=== PATIENT | female | born 1970 | race African-American/Black ===

== ENCOUNTER 2017-09-12 12:58 | Emergency (ER) | payer SELFPAY ==
--- NOTE | 2017-09-12 15:31 | RAD ---
3 VIEWS LUMBAR SPINE: Date: 09/12/17 HISTORY: Injury to low back. Patient complains of low back pain after slipping and falling 1 month ago. COMPARISON: 11/15/02. FINDINGS: Surgical clips overlie the right upper quadrant with radiopaque suture material overlying the left up per quadrant. There are five non-rib bearing lumbar-type vertebral bodies. Small osteophytes are seen anteriorly at the L1-2 and L2-3 levels. The vertebral body heights are within normal limits. There i s no fracture or subluxation involving the lumbar spine. There is angulation of the lowermost sacral segment, which may be related to prior injury or developmental in origin. This is not thought to repr esent an acute finding. Vascular calcifications are seen in the abdominal aorta and iliac arteries. IMPRESSION: 1. No acute fracture or subluxation involving the lumbar spine. 2. Mild degenerative changes lumbar spine. 3. Angulation lowermost sacral segment. This was not present on CT exam in 2013, but this does not a ppear to represent more acute injury and is probably more remote in origin. However, correlation for point tenderness in the lower sacrum is recommended. POS: [facility]
--- NOTE | 2017-09-12 15:37 | RAD ---
4 VIEWS LEFT ELBOW: Date: 09/12/17 HISTORY: Left elbow injury. Left elbow pain. FINDINGS: Mild degenerative changes are seen involving the elbow. There is a very tiny punctate osseous density above the coronoid process of the elbow, which could represent a tiny avulsion injury of indetermina te age. No additional fracture seen and there is no dislocation. There is evidence of a small joint e ffusion with suggestion of elevation of the posterior fat pad. IMPRESSION: 1. Elbow joint effusion which suggests the possibility of a fracture. Follow-up views of the elbow a re recommended after conservative management in 4-7 days. 2. Tiny osseous density adjacent to the coronoid process of the olecranon which may represent a very tiny avulsion injury of indeterminate age. POS: [facility]
--- NOTE | 2017-09-12 15:56 | RAD ---
RIGHT INDEX FINGER 3 VIEWS: Date: 09/11/17 HISTORY: Right femur injury. FINDINGS: Soft tissue swelling about the proximal interphalangeal joint. Joint spaces are preserved. No acute f racture, dislocation, or radiopaque foreign bodies. IMPRESSION: Soft tissue swelling. No acute osseous abnormalities are demonstrated. POS: [facility]
== END 2017-09-12 16:23 | disposition home or self-care (01) ==
LOC: SCSER 12:58
DX: S52.022A Displaced fracture of olecranon process without intraarticular extension of left ulna, initial encounter for closed fracture (principal); S33.5XXA Sprain of ligaments of lumbar spine, initial encounter; S63.610A Unspecified sprain of right index finger, initial encounter; J45.909 Unspecified asthma, uncomplicated; I10 Essential (primary) hypertension; F17.210 Nicotine dependence, cigarettes, uncomplicated; Z79.899 Other long term (current) drug therapy; W19.XXXA Unspecified fall, initial encounter
CPT/HCPCS: 24670; 72100

== ENCOUNTER 2018-03-14 18:19 | Emergency (ER) | payer SELFPAY | END 2018-03-14 18:46 | disposition left against medical advice (07) | LOC: ERS 18:19 | DX: Z53.21 Procedure and treatment not carried out due to patient leaving prior to being seen by health care provider (principal) ==

== ENCOUNTER 2019-02-06 02:20 | Emergency (ER) | payer SELFPAY | END 2019-02-06 10:00 | disposition home or self-care (01) | LOC: ERS 02:20 | DX: F10.129 Alcohol abuse with intoxication, unspecified (principal); I10 Essential (primary) hypertension; F17.210 Nicotine dependence, cigarettes, uncomplicated | CPT/HCPCS: 36415; 80307; 99283 ==

== ENCOUNTER 2019-02-06 12:05 | Emergency (ER) | payer SELFPAY | END 2019-02-06 14:41 | disposition left against medical advice (07) | LOC: ERS 12:05 | DX: Z53.21 Procedure and treatment not carried out due to patient leaving prior to being seen by health care provider (principal) ==

== ENCOUNTER 2019-05-28 06:03 | Emergency (ER) | payer SELFPAY ==
[2019-05-28 07:04] LABS: BHCG - Serum Negative (NEGATIVE); Pregs Control Background? CLEAR/WHITE (CLR/WHITE); Pregs Control Bar Appear? YES (CONTROL BAR)
[2019-05-28 07:15] LABS: ALT (SGPT) 90 U/L (8-55); AST (SGOT) 211 U/L (5-34); Albumin 3.9 g/dL (3.5-5.0); Alkaline Phosphatase 87 U/L (40-110); Anion Gap 13 mmol/L (10-20); BUN (Urea Nitrogen) 9 mg/dL (7.0-18.7); Bilirubin, Total 0.2 mg/dL (0.2-1.2); Calc. Creatinine Clearance 0 mL/min (70-130); Calcium 8.5 mg/dL (7.8-10.44); Carbon Dioxide 23 mmol/L (22-29); Chloride 101 mmol/L (98-107); Estimated GFR-MDRD Greater than 90; Globulin 3.2 g/dL (2.4-3.5); Glucose 74 mg/dL (70-105); Potassium 3.4 mmol/L (3.5-5.1); Protein, Total 7.1 g/dL (6.0-8.3); Sodium 134 mmol/L (136-145)
[2019-05-28 07:16] LABS: Acetaminophen Less than 6.0 mcg/mL (10.0-30.0); Alcohol 294 mg/dL (Less than 10); Salicylate Less than 8.0 mg/dL (15.0-30.0)
[2019-05-28 07:22] LABS: #Basophils 0.1 thou/uL (0.0-0.2); #Eosinphils 0.1 thou/uL (0.0-0.7); #Lymphocytes 2.3 thou/uL (1.20-3.40); #Monocytes 0.6 thou/uL (0.11-0.59); #Neutrophils 3.2 thou/uL (1.40-6.50); %Basophils 1.2 % (0.0-1.0); %Eosinophils 2.2 % (0.0-10.0); %Lymphocytes 36.1 % (21.0-51.0); %Monocytes 9.1 % (0.0-10.0); %Neutrophils 51.5 % (42.0-75.0); Mean Corpuscular HGB CONC 31.4 g/dL (32.0-36.0); Mean Corpuscular Hemoglobin 22.6 pg (27.0-31.0); Mean Corpuscular Volume 71.9 fL (78.0-98.0); Red Blood Cell (RBC) Count 4.43 mill/uL (4.20-5.40); White Blood Cell (WBC) Count 6.3 thou/uL (4.8-10.8)
[2019-05-28 07:24] LABS: Mean Platelet Volume 6.4 fL (7.4-10.4); RBC Distribution Width 19.7 % (11.5-14.5)
[2019-05-28 07:37] LABS: Platelet Count 116 thou/uL (130-400); Target Cells MODERATE= 6-15 cells (100X) (0-1/hpf)
[2019-05-28 07:38] LABS: Hypochromia SLIGHT = 6-15 cells (100X) (0-5/hpf); Microcytosis SLIGHT = 6-15 cells (100X) (0-5/hpf); Polychromasia SLIGHT = 2-3 cells (100X) (0-2/hpf)
== END 2019-05-28 08:26 | disposition home or self-care (01) ==
LOC: ERS 06:03
DX: F10.129 Alcohol abuse with intoxication, unspecified (principal); R11.2 Nausea with vomiting, unspecified; R19.7 Diarrhea, unspecified; F17.210 Nicotine dependence, cigarettes, uncomplicated; I10 Essential (primary) hypertension
CPT/HCPCS: 36415; 80053; 80307; 84703; 85025; 96360; 96361

== ENCOUNTER 2020-07-16 13:51 | Emergency (ER) | payer SELFPAY ==
[2020-07-16] MEDS ORDERED: Metoclopramide HCl 10 MG/2 ML VIAL ONE (14:32)
[2020-07-16] MEDS ORDERED: Ketorolac Tromethamine 30 MG/ML VIAL ONE (14:32)
[2020-07-16 15:11] LABS: #Eosinphils 0.1 thou/uL (0.0-0.7); #Lymphocytes 1.6 thou/uL (1.20-3.40); #Monocytes 0.4 thou/uL (0.11-0.59); #Neutrophils 2.9 thou/uL (1.40-6.50); %Eosinophils 1.1 % (0.0-10.0); %Lymphocytes 32.3 % (21.0-51.0); %Monocytes 7.2 % (0.0-10.0); %Neutrophils 58.4 % (42.0-75.0); Mean Corpuscular HGB CONC 32.8 g/dL (32.0-36.0); Mean Corpuscular Hemoglobin 23.8 pg (27.0-31.0); Mean Corpuscular Volume 72.7 fL (78.0-98.0); Mean Platelet Volume 7.4 fL (7.4-10.4); Platelet Count 97 thou/uL (130-400); RBC Distribution Width 19.7 % (11.5-14.5); Red Blood Cell (RBC) Count 4.61 mill/uL (4.20-5.40); White Blood Cell (WBC) Count 4.9 thou/uL (4.8-10.8)
[2020-07-16 15:20] LABS: Bilirubin Negative (Negative); Blood, Urine Small (Negative); Glucose, Urine (Dipstick) Negative (Negative); Ketone, Urine Trace mg/dL (Negative); Leukocyte Negative (Negative); Nitrite Positive (Negative); Protein, Urine (Dipstick) Negative (Neg-Trace); Urobilinogen 0.2 mg/dL (Less than 2); pH, Urine 5.5 (5.0-9.0)
[2020-07-16 15:21] LABS: Clarity Clear (Clear)
[2020-07-16 15:24] LABS: Bacteria/HPF 3+ HPF (None Seen); RBC/HPF 0-3 HPF (0-3)
[2020-07-16 15:26] LABS: ALT (SGPT) 76 U/L (8-55); AST (SGOT) 60 U/L (5-34); Albumin 4.1 g/dL (3.5-5.0); Alkaline Phosphatase 100 U/L (40-110); Anion Gap 12 mmol/L (10-20); BUN (Urea Nitrogen) 5 mg/dL (7.0-18.7); Bilirubin, Total 0.3 mg/dL (0.2-1.2); Calc. Creatinine Clearance 0 mL/min (70-130); Calcium 9.1 mg/dL (7.8-10.44); Carbon Dioxide 26 mmol/L (22-29); Chloride 105 mmol/L (98-107); Globulin 3.7 g/dL (2.4-3.5); Glucose 83 mg/dL (70-105); Potassium 3.6 mmol/L (3.5-5.1); Protein, Total 7.8 g/dL (6.0-8.3); Sodium 139 mmol/L (136-145)
[2020-07-16 15:42] LABS: Anisocytosis SLIGHT = 6-15 cells (100X) (0-5/hpf); Hypochromia SLIGHT = 6-15 cells (100X) (0-5/hpf); MDiff Complete? YES; Microcytosis SLIGHT = 6-15 cells (100X) (0-5/hpf); Platelet Morphology Comment Appears Decreased; Polychromasia SLIGHT = 2-3 cells (100X) (0-2/hpf); Target Cells SLIGHT = 2-5 cells (100X) (0-1/hpf)
[2020-07-16 21:39] LABS: SARS-CoV-2 PCR by NAA DETECTED (NotDetected)
== END 2020-07-16 17:06 | disposition home or self-care (01) ==
LOC: ERS 13:51
DX: U07.1 COVID-19 (principal); D69.6 Thrombocytopenia, unspecified; N39.0 Urinary tract infection, site not specified; I10 Essential (primary) hypertension; G47.30 Sleep apnea, unspecified; F17.210 Nicotine dependence, cigarettes, uncomplicated
CPT/HCPCS: 36415; 71045; 80053; 81003; 81015; 83605; 85025; 87077; 87086; 87186; 94760; 96374; 96375; J1885; J2765; U0003; U0005

== ENCOUNTER 2021-07-13 05:42 | Emergency (ER) | payer OTHER, SELFPAY ==
[2021-07-13] MEDS ORDERED: Sucralfate 1 GM/10 ML UDCUP ONE (05:58)
[2021-07-13] MEDS ORDERED: Ondansetron PF 4 MG/2 ML Vial ONE ×2 (05:58→09:36)
[2021-07-13] MEDS ORDERED: hydrALAZINE 20 MG/ML VIAL ONE (06:31)
[2021-07-13] MEDS ORDERED: Mag-Al 1200 mg/1200 mg/30 ML UDCUP ONE (07:00)
[2021-07-13] MEDS ORDERED: Lidocaine Viscous Sol 2% 15 ml UD Cup ONE (07:00)
[2021-07-13 07:23] LABS: Bacteria/HPF 2+ HPF (None Seen); Bilirubin Negative (Negative); Blood, Urine Negative (Negative); Clarity Turbid (Clear); Glucose, Urine (Dipstick) Normal (Negative); Ketone, Urine Negative (Negative); Leukocyte Negative Leu/uL (Negative); Nitrite 2+ (Negative); Protein, Urine (Dipstick) Negative (Neg-Trace); RBC/HPF 0-3 HPF (0-3); Specific Gravity, Urine 1.012 (1.002-1.036); Squamous Epithelial 0-3 HPF (0-3); Urobilinogen Normal mg/dL (Less than 2); WBC/HPF 0-3 HPF (0-3); pH, Urine 5.5 (5.0-9.0)
[2021-07-13 07:26] LABS: Hemoglobin 12.4 g/dL (12.0-16.0); Mean Corpuscular HGB CONC 32.5 g/dL (32.0-36.0); Mean Corpuscular Hemoglobin 24.7 pg (27.0-31.0); Mean Corpuscular Volume 76.2 fL (78.0-98.0); Red Blood Cell (RBC) Count 5.02 mill/uL (4.20-5.40); White Blood Cell (WBC) Count 8.7 thou/uL (4.8-10.8)
[2021-07-13] MEDS ORDERED: Lorazepam 2 MG/ML VIAL ONE (07:26)
[2021-07-13 07:36] LABS: ALT (SGPT) 149 U/L (8-55); AST (SGOT) 133 U/L (5-34); Albumin 3.6 g/dL (3.5-5.0); Alkaline Phosphatase 137 U/L (40-110); Anion Gap 16 mmol/L (10-20); BUN (Urea Nitrogen) 11 mg/dL (7.0-18.7); Bilirubin, Total 1.9 mg/dL (0.2-1.2); Calc. Creatinine Clearance 0 mL/min (70-130); Calcium 8.4 mg/dL (7.8-10.44); Carbon Dioxide 25 mmol/L (22-29); Chloride 85 mmol/L (98-107); Globulin 3.1 g/dL (2.4-3.5); Glucose 136 mg/dL (70-105); Lipase 218 U/L (8-78); Protein, Total 6.7 g/dL (6.0-8.3); Sodium 123 mmol/L (136-145)
[2021-07-13 07:43] LABS: Potassium 2.7 mmol/L (3.5-5.1)
[2021-07-13 07:57] LABS: #Basophils 0.1 thou/uL (0.0-0.2); #Lymphocytes 1.8 thou/uL (1.20-3.40); #Monocytes 0.4 thou/uL (0.11-0.59); %Basophils 0.8 % (0.0-1.0); %Eosinophils 0.3 % (0.0-10.0); %Lymphocytes 19.4 % (21.0-51.0); %Monocytes 3.9 % (0.0-10.0); %Neutrophils 75.6 % (42.0-75.0); Band 2 % (5-11); Eosinophils 1 % (0-10); Hypochromia SLIGHT = 6-15 cells (100X) (0-5/hpf); Lymphocytes 15 % (21-51); MDiff Complete? YES; Mean Platelet Volume 7.2 fL (7.4-10.4); Microcytosis SLIGHT = 6-15 cells (100X) (0-5/hpf); Neutrophil 81 % (42-75); Platelet Count 75 thou/uL (130-400); Platelet Morphology Comment Appears Decreased; Polychromasia MODERATE = 3-4 cells (100X) (0-2/hpf); RBC Distribution Width 15.4 % (11.5-14.5); Reactive Lymphocytes 1 % (0-10); Stomatocytes SLIGHT = 2-5 cells (100X) (0-1/hpf); Target Cells MODERATE= 6-15 cells (100X) (0-1/hpf)
[2021-07-13] MEDS ORDERED: Potassium Chloride 20 MEQ/100 ML PREMIX BAG ONE (08:06)
[2021-07-13] MEDS ORDERED: Potassium Chloride 20 MEQ TAB ONE (08:06)
[2021-07-13 08:41] LABS: Magnesium 1.4 mg/dL (1.6-2.6)
[2021-07-13] MEDS ORDERED: Morphine 4 MG/ML VIAL ONE (09:36)
[2021-07-13] MEDS ORDERED: Magnesium 2 GM/50 ML BAG (IN WATER) ONE (10:02)
[2021-07-13] MEDS ORDERED: Aspirin Chewable 81 MG TAB ONE (10:10)
[2021-07-13 10:49] LABS: Troponin I 0.018 ng/mL (< 0.028)
[2021-07-13 10:51] LABS: Anion Gap 12 mmol/L (10-20); BUN (Urea Nitrogen) 8 mg/dL (7.0-18.7); Calc. Creatinine Clearance 0 mL/min (70-130); Calcium 7.9 mg/dL (7.8-10.44); Carbon Dioxide 25 mmol/L (22-29); Chloride 89 mmol/L (98-107); Glucose 115 mg/dL (70-105); Potassium 3.1 mmol/L (3.5-5.1); Sodium 123 mmol/L (136-145)
== END 2021-07-13 11:01 | disposition short-term general hospital (02) ==
LOC: ERS 05:42
DX: R07.2 Precordial pain (principal); I10 Essential (primary) hypertension; E87.6 Hypokalemia; G47.30 Sleep apnea, unspecified; F17.210 Nicotine dependence, cigarettes, uncomplicated; Z79.899 Other long term (current) drug therapy
CPT/HCPCS: 36415; 71045; 76705; 80053; 81003; 81015; 83690; 83735; 84484; 85025; 93005; 96365; 96366; 96375; 96376; J0360; J2060; J2270; J2405; J3475; J3480